=== PATIENT | male | born 1975 ===

== ENCOUNTER 2019-08-10 05:34 | Day surgery (SDC) | payer OTHER | END 2019-08-10 09:00 | disposition home or self-care (01) | LOC: AMB-ENDOS | DX: K57.32 Diverticulitis of large intestine without perforation or abscess without bleeding (principal); K57.30 Diverticulosis of large intestine without perforation or abscess without bleeding; K64.1 Second degree hemorrhoids; Z12.11 Encounter for screening for malignant neoplasm of colon ==